=== PATIENT | male | born 1975 | race Caucasian/White ===

== ENCOUNTER 2018-09-17 17:14 | Inpatient (IN) | payer OTHER ==
[2018-09-17 18:13] VITALS: BMI 27.0
--- NOTE | 2018-09-17 19:08 | HP ---
CIWA Score - Admission Criteria [facility]ASAS Guidelines: Admission for Medically Managed Detox: Requires at least one of the followin. CIWA greater than 12 2. Seizures within the past 24 hours 3. Delirium tremens within the past 24 hours 4. Hallucinations within the past 24 hours 5. Acute intervention needed for co occurring medical disorder 6. Acute intervention needed for co occurring psychiatric disorder 7. Severe withdrawal that cannot be handled at a lower level of care (continued vomiting, continued diarrhea, abnormal vital signs) requiring intravenous medication and/or fluids 8. Admission ROS BHS - HPI Chief Complaint: I was at [facility] for my detox and psychiatric issues for 2 weeks. now here for rehab. Allergies/Adverse Reactions: Allergies Allergy/AdvReac Type Severity Reaction Status Date / Time No Known Allergies Allergy Verified 09/17/18 18:47 History of Present Illness: pt is a 43yr old male with a history of alcohol and cocaine dependence seeking rehab for treatment. Pt was at [facility] for treatment for both alcohol and psych issues. Exam Limitations: No Limitations - Ebola screening Have you traveled outside of the country in the last 21 days: No Have you had contact with anyone from an Ebola affected area: No Have you been sick,other than usual withdrawal symptoms: No Do you have a fever: No - Review of Systems Constitutional: No Symptoms Reported EENT: reports: No Symptoms Reported Respiratory: reports: No Symptoms reported Cardiac: reports: No Symptoms Reported GI: reports: No Symptoms Reported : reports: No Symptoms Reported Musculoskeletal: reports: Back Pain, Joint Pain Integumentary: reports: No Symptoms Reported Neuro: reports: No Symptoms reported Endocrine: reports: No Symptoms Reported Hematology: reports: No Symptoms Reported Psychiatric: reports: Judgement Intact, Mood/Affect Appropiate, Orientated x3, Agitated, Anxious Other Systems: Reviewed and Negative Patient History - Patient Medical History Hx Anemia: No Hx Asthma: No Hx Chronic Obstructive Pulmonary Disease (COPD): No Hx Cancer: No Hx Cardiac Disorders: No Hx Congestive Heart Failure: No Hx Hypertension: No Hx Hypercholesterolemia: No Hx Pacemaker: No HX Cerebrovascular Accident: No Hx Seizures: No Hx Dementia: No Hx Diabetes: No Hx Gastrointestinal Disorders: Yes (acid reflux ) Hx Liver Disease: No Hx Genitourinary Disorders: No Hx Sexually Transmitted Disorders: No Hx Renal Disease (ESRD): No Hx Thyroid Disease: No Hx Human Immunodeficiency Virus (HIV): No (negative ) Hx Hepatitis C: No (negative) Hx Depression: Yes Hx Suicide Attempt: Yes (tried to hurt self 2weeks ago. denies any S/H ideation today) Hx Bipolar Disorder: Yes Hx Schizophrenia: Yes - Patient Surgical History Past Surgical History: Yes Hx Abdominal Surgery: Yes (2x hernia repair ) Other Surgical History: skin graft to right arm 1976. - PPD History Previous Implant?: No Documented Results: Positive w/o proof PPD to be Administered?: No - Reproductive History Patient is a Female of Child Bearing Age (11 -55 yrs old): No - Smoking Cessation Smoking history: Current every day smoker Have you smoked in the past 12 months: Yes Aproximately how many cigarettes per day: 10 Hx Chewing Tobacco Use: No Initiated information on smoking cessation: Yes 'Breaking Loose' booklet given: 09/17/18 - Substance & Tx. History Hx Alcohol Use: Yes Hx Substance Use: No Substance Use Type: Alcohol, Cocaine Hx Substance Use Treatment: Yes (last detox 1yr ago cannot remember where.) - Substances Abused Alcohol Route: Oral Frequency: Daily Amount used: 2 six pack Age of first use: 17 Date of Last Use: 08/27/18 Cocaine Route: Inhalation Frequency: Daily Amount used: 1gram Age of first use: 17 Date of Last Use: 08/27/18 Family Disease History - Family Disease History Family Disease History: CA: Grandparent (etoh), Other: Grandparent Admission Physical Exam BHS - Vital Signs Vital Signs: Vital Signs - 24 hr 09/17/18 18:07 Temperature 97.8 F Pulse Rate 90 Respiratory 18 Rate Blood Pressure 123/77 - Physical General Appearance: Yes: Appropriately Dressed, Moderate Distress, Sweating, Anxious HEENTM: Yes: Hearing grossly Normal, Normal Voice Respiratory: Yes: Chest Non-Tender, Lungs Clear, Normal Breath Sounds Neck: Yes: No masses,lesions,Nodules Breast: Yes: Within Normal Limits Cardiology: Yes: Regular Rhythm, Regular Rate, S1, S2 Abdominal: Yes: Normal Bowel Sounds, Non Tender, Flat Genitourinary: Yes: Within Normal Limits Back: Yes: Normal Inspection Musculoskeletal: Yes: full range of Motion, Back pain Extremities: Yes: Normal Capillary Refill, Normal Inspection, Non-Tender Neurological: Yes: Fully Oriented, Alert, Normal Response Integumentary: Yes: Normal Color Lymphatic: Yes: Within Normal Limits - Diagnostic (1) Cocaine dependence Current Visit: Yes Status: Chronic Qualifiers: Substance use status: uncomplicated Qualified Code(s): F14.20 - Cocaine dependence, uncomplicated (2) Nicotine dependence Current Visit: Yes Status: Chronic Qualifiers: Nicotine product type: cigarettes Substance use status: uncomplicated Qualified Code(s): F17.210 - Nicotine dependence, cigarettes, uncomplicated (3) Acid reflux Current Visit: Yes Status: Chronic Qualifiers: Esophagitis presence: without esophagitis Qualified Code(s): K21.9 - Gastro -esophageal reflux disease without esophagitis (4) Alcohol dependence Current Visit: Yes Status: Chronic Qualifiers: Substance use status: in remission Qualified Code(s): F10.21 - Alcohol dependence, in remission Cleared for Admission BHS - Detox or Rehab [facility] Level of Care: Medically Managed Claeared for Rehab Admission: Yes [facility] Breath Alcohol Content Breath Alcohol Content: 0 Urine Drug Screen - Results Drug Screen Negative: No Urine Drug Screen Results: BZO-Benzodiazepines Inpatient Rehab Admission - Initial Determination Are CD services needed?: Yes Free of communicable disease: Yes Not in need of hospitalization: Yes - Rehab Admission Criteria Poor recovery environment: Yes Comorbidities: Yes Lacks judgement: Yes Patient is meeting Inpatient Rehab admission criteria:: Yes
[2018-09-17] MEDS ORDERED: ACETAMINOPHEN 325 MG TABLET (FP) PO PRN (19:15)
[2018-09-17] MEDS ORDERED: MAGNESIUM CITRATE 300 ML BOTTLE PO PRN (19:15)
[2018-09-17] MEDS ORDERED: P-EPHED 60MG/TRIPROLIDI 2.5MG TABLET PO PRN (19:15)
[2018-09-17] MEDS ORDERED: guaiFENesin/D-METHORPHAN HB 10 ML UNIT-DOSE CUPS PO PRN (19:15)
[2018-09-17] MEDS ORDERED: NICOTINE POLACRILEX 4 MG GUM BC PRN (19:15)
[2018-09-17] MEDS ORDERED: MAG HYDROX/AL HYDROX/SIMETH 30 ML UNIT-DOSE CUP PO PRN (19:15)
[2018-09-17] MEDS ORDERED: LOPERAMIDE HCL 2 MG CAPSULE PO PRN (19:15)
[2018-09-17] MEDS ORDERED: MENTHOL/PHENOL 1 EACH UD MM PRN (19:15)
[2018-09-17] MEDS ORDERED: MAGNESIUM HYDROX 2400MG/30ML ORAL SUSPENSION 30 ML CUP PO PRN (19:15)
[2018-09-17] MEDS ORDERED: IBUPROFEN 400 MG TABLET (FP) PO PRN (19:15)
[2018-09-17] MEDS ORDERED: MELATONIN 5 MG TABLETS PO PRN (22:00)
[2018-09-17] MEDS: hydrOXYzine PAMOATE 50 MG CAPSULE (FP) PO PRN (22:15)
[2018-09-17] MEDS: THIAMINE HCL 100 MG TABLET (FP) PO SCH (22:15)
[2018-09-17] MEDS: MIRTAZAPINE 30 MG TABLET (FP) PO SCH (22:15)
[2018-09-18] MEDS: PANTOPRAZOLE 40 MG TABLET (FP) PO SCH ×2 (06:38→10:58)
[2018-09-18] MEDS: PRENATAL VITAMINS W/ FOLIC ACID TABLET (FP) PO SCH (10:58)
[2018-09-18] MEDS: NICOTINE 21 MG/24 HOURS TOPICAL PATCH TD SCH (10:58)
[2018-09-18] MEDS: hydrOXYzine PAMOATE 50 MG CAPSULE (FP) PO PRN ×2 (10:59→21:45)
--- NOTE | 2018-09-18 11:37 | HP ---
Psychiatrist Admission - Data Date of interview: 09/18/18 Admission source: [facility] Identifying data: Patient is a 43 year old male, father of two, unemployed. domiciled, and is supported by public assistance. This is patient's first admission to rehab at [facility]. Patient admitted to for cocaine dependence. Medical History: Acid reflux, 2x hernia repair, skin graft to right arm 1976 Psychiatric History: Patient's first psychiatric contact was at 25 years of age to address h/o polysubstance abuse. He was diagnosed with Bipolar disorder and prescribed remeron and effexor. He discontinued treatment after 6 months and did not seek psychiatric treatment again until the age of 38. At the age of 38 he reported worsening depression and anxiety due to polysubstance abuse and therefore admitted himself to a detox/rehab program in [place]. After discharge he continued outpatient psychiatric treatment at the [facility] in [place], [place]. He was later diagnosed with schizoaffective disorder. Patient reports multiple psychatric hospitalizations, most recently at [facility] from -09/17/18 after a suicide attempt via overdose of zyprexa pills. Patient is also known to [facility]. He reports history of 5 suicide attempts via hanging self and overdose. In addition, he also reports h /o cutting self superfically. Patient's current psychotropic medications are abilify 10mg daily + Zoloft 200mg daily + Mirtzapine 30mg HS (discharge medications from [facility]). Current outpatient psychiatric care is provided at the [facility] in [place], [place]. Before admission to [facility] he was prescried zyprexa 15mg + Cymbalta 60mg + vistaril 50mg by his outpatient psychiatrist. He reports h/o paranoid ideation, mood unstability, and believing he can read another individuals mind. Patient currently denies thoughts or urgues to hurt self or others. At present, patient reports feeling anxious. He denies psychotic symptoms. Physical/Sexual Abuse/Trauma History: denies. Vital Signs: Vital Signs - 24 hr 09/17/18 09/18/18 09/18/18 18:07 00:30 03:30 Temperature 97.8 F Pulse Rate 90 Respiratory 18 Rate Blood Pressure 123/77 09/18/18 06:59 Temperature 97.9 F Pulse Rate 72 Respiratory 18 Rate Blood Pressure 125/84 Allergies/Adverse Reactions: Allergies Allergy/AdvReac Type Severity Reaction Status Date / Time No Known Allergies Allergy Verified 09/17/18 18:47 Date of last physical exam: 09/17/18 Concur with the findings of this exam: Yes - Substance Abuse/Tx History Hx Alcohol Use: Yes (2 six packs daily) Hx Substance Use: Yes (1 gram daily) Substance Use Type: Cocaine Hx Substance Use Treatment: Yes (Rehab in [place]. ) Mental Status Exam - Mental Status Exam Alert and Oriented to: Time, Place, Person Cognitive Function: Good Patient Appearance: Well Groomed Mood: Anxious, Euthymic Affect: Appropriate Patient Behavior: Appropriate, Cooperative Speech Pattern: Clear, Appropriate Voice Loudness: Normal Thought Process: Goal Oriented Thought Disorder: Not Present Hallucinations: Denies Suicidal Ideation: Denies Homicidal Ideation: Denies Insight/Judgement: Poor Sleep: Fair Appetite: Fair Muscle strength/Tone: Normal Gait/Station: Normal Psychiatric Findings - Problem List ([place] 1, 2,3) (1) Schizoaffective disorder Current Visit: Yes Status: Chronic (2) Alcohol dependence Current Visit: Yes Status: Chronic Qualifiers: Substance use status: in remission Qualified Code(s): F10.21 - Alcohol dependence, in remission (3) Cocaine dependence Current Visit: Yes Status: Chronic Qualifiers: Substance use status: uncomplicated Qualified Code(s): F14.20 - Cocaine dependence, uncomplicated (4) Nicotine dependence Current Visit: Yes Status: Chronic Qualifiers: Nicotine product type: cigarettes Substance use status: uncomplicated Qualified Code(s): F17.210 - Nicotine dependence, cigarettes, uncomplicated - Initial Treatment Plan Initial Treatment Plan: Psychoeducation provided. Rehab in progress. Medications verified through discharge documentions from [facility]. Will order Zoloft 200mg daily + Abilify 10mg daily. Will continue Remeron 30mg which was ordered in [facility] by [facility]. Benefits and side effects discussed. Verbal consent given.
--- NOTE | 2018-09-18 12:52 | EKG ---
Test Reason : Blood Pressure : / mmHG Vent. Rate : 078 BPM Atrial Rate : 078 BPM P-R Int : 174 ms QRS Dur : 098 ms QT Int : 362 ms P-R-T Axes : 071 061 061 degrees QTc Int : 412 ms NORMAL SINUS RHYTHM NORMAL ECG NO PREVIOUS ECGS AVAILABLE Confirmed by MECCA ETIENNE MD ([id number]) on 09/18/2018 12:51:35 PM Referred By: Confirmed By:MECCA ETIENNE MD
[2018-09-18] MEDS: SERTRALINE HCL 50 MG TABLET (FP) PO SCH (14:20)
[2018-09-18] MEDS: ARIPiprazole 10 MG TABLET PO SCH (14:20)
[2018-09-18 16:04] LABS: HEMATOCRIT 43.5 % (35.4-49); HEMOGLOBIN 15.4 GM/dL (11.7-16.9); MCH 32.9 pg (25.7-33.7); MCHC 35.3 g/dl (32.0-35.9); MEAN CELL VOLUME 93.2 fl (80-96); MEAN PLT VOLUME 7.8 fl (7.5-11.1); PLATELET COUNT 260 K/MM3 (134-434); RBC 4.67 M/mm3 (4.00-5.60); WHITE BLOOD COUNT 10.3 K/mm3 (4.0-10.0)
[2018-09-18 16:20] LABS: ALBUMIN 3.7 g/dl (3.4-5.0); ALK PHOS 82 U/L (45-117); ANION GAP 6 MMOL/L (8-16); BILIRUBIN,TOTAL 0.3 mg/dL (0.2-1); BLOOD UREA NITROGEN 10 mg/dL (7-18); CHLORIDE 103 mmol/L (98-107); CO2 31 mmol/L (21-32); CREATININE 0.8 mg/dL (0.55-1.3); GLUCOSE,RANDOM 84 mg/dL (74-106); SGOT/AST 30 U/L (15-37); SGPT/ALT 84 U/L (13-61); SODIUM 140 mmol/L (136-145); TOT PROT 6.9 g/dl (6.4-8.2)
[2018-09-18 19:10] LABS: URINE APPEARANCE CLEAR; URINE BILIRUBIN NEGATIVE (<2.0 mg/dL); URINE COLOR COLORLESS; URINE GLUCOSE (UA) NEGATIVE (NEGATIVE); URINE KETONE NEGATIVE (NEGATIVE); URINE LEUK ESTERASE NEGATIVE (NEGATIVE); URINE NITRITE NEGATIVE (NEGATIVE); URINE PROTEIN NEGATIVE (NEGATIVE); URINE UROBILINOGEN NEGATIVE mg/dL (0.2-1.0)
[2018-09-18] MEDS: THIAMINE HCL 100 MG TABLET (FP) PO SCH (21:44)
[2018-09-18] MEDS: MIRTAZAPINE 30 MG TABLET (FP) PO SCH (21:45)
[2018-09-19] MEDS: NICOTINE 21 MG/24 HOURS TOPICAL PATCH TD SCH (10:43)
[2018-09-19] MEDS: PRENATAL VITAMINS W/ FOLIC ACID TABLET (FP) PO SCH (10:43)
[2018-09-19] MEDS: PANTOPRAZOLE 40 MG TABLET (FP) PO SCH (10:44)
[2018-09-19] MEDS: ARIPiprazole 10 MG TABLET PO SCH (10:44)
[2018-09-19] MEDS: SERTRALINE HCL 50 MG TABLET (FP) PO SCH (10:46)
[2018-09-19] MEDS: hydrOXYzine PAMOATE 50 MG CAPSULE (FP) PO PRN ×3 (13:13→21:34)
[2018-09-19] MEDS: MIRTAZAPINE 30 MG TABLET (FP) PO SCH (21:34)
[2018-09-19] MEDS: THIAMINE HCL 100 MG TABLET (FP) PO SCH (21:34)
[2018-09-20] MEDS: hydrOXYzine PAMOATE 50 MG CAPSULE (FP) PO PRN ×3 (08:37→19:13)
[2018-09-20] MEDS: SERTRALINE HCL 50 MG TABLET (FP) PO SCH (10:26)
[2018-09-20] MEDS: PANTOPRAZOLE 40 MG TABLET (FP) PO SCH (10:27)
[2018-09-20] MEDS: ARIPiprazole 10 MG TABLET PO SCH (10:27)
[2018-09-20] MEDS: PRENATAL VITAMINS W/ FOLIC ACID TABLET (FP) PO SCH (10:27)
[2018-09-20] MEDS: NICOTINE 21 MG/24 HOURS TOPICAL PATCH TD SCH (10:27)
[2018-09-20] MEDS: THIAMINE HCL 100 MG TABLET (FP) PO SCH (21:44)
[2018-09-20] MEDS: MIRTAZAPINE 30 MG TABLET (FP) PO SCH (21:44)
[2018-09-21] MEDS: SERTRALINE HCL 50 MG TABLET (FP) PO SCH (08:59)
[2018-09-21] MEDS: ARIPiprazole 10 MG TABLET PO SCH (08:59)
[2018-09-21] MEDS: PANTOPRAZOLE 40 MG TABLET (FP) PO SCH (08:59)
[2018-09-21] MEDS: PRENATAL VITAMINS W/ FOLIC ACID TABLET (FP) PO SCH (08:59)
[2018-09-21] MEDS: hydrOXYzine PAMOATE 50 MG CAPSULE (FP) PO PRN ×4 (08:59→21:43)
[2018-09-21] MEDS: NICOTINE 21 MG/24 HOURS TOPICAL PATCH TD SCH (09:00)
--- NOTE | 2018-09-21 13:26 | PN ---
Psychiatric Progress Note Vital Signs: Vital Signs Period Temp Pulse Resp BP Sys/Do Pulse Ox Last 24 Hr 97.7 F 97 18-18 129/84 Date of Session: 09/21/18 Chief Complaint:: Discharge Note HPI: Patient addressing Alcohol and Cocaine Dependence comorbid with Nicotine Dependence and Schizoaffective Disorder ROS: GERD Current Medications: Active Medications Generic Name Dose Route Start Last Admin Trade Name Freq PRN Reason Stop Dose Admin Acetaminophen 650 mg 09/17/18 19:15 Tylenol - PO Q4H PRN FEVER Al Hydroxide/Mg Hydroxide 30 ml 09/17/18 19:15 Mylanta Oral Suspension - PO Q6H PRN DYSPEPSIA Aripiprazole 10 mg 09/18/18 13:00 09/21/18 08:59 Abilify PO 10 mg DAILY NICHOLAS Administration Eucalyptus/Menthol/Phenol/Sorbitol 1 each 09/17/18 19:15 Cepastat Lozenge - MM Q4H PRN SORE THROAT Guaifenesin 10 ml 09/17/18 19:15 Robitussin Dm - PO Q6H PRN COUGH Hydroxyzine Pamoate 50 mg 09/17/18 19:15 09/21/18 12:41 Vistaril - PO 50 mg Q4H PRN Administration AGITATION Ibuprofen 400 mg 09/17/18 19:15 Motrin - PO Q6H PRN Pain level 4-6 Loperamide HCl 4 mg 09/17/18 19:15 Imodium - PO Q6H PRN DIARRHEA Magnesium Citrate 300 ml 09/17/18 19:15 Citroma - PO Q48H PRN CONSTIPATION Magnesium Hydroxide 30 ml 09/17/18 19:15 Milk Of Magnesia - PO DAILY PRN CONSTIPATION Melatonin 5 mg 09/17/18 22:00 09/17/18 22:15 Melatonin PO 5 mg HS PRN Administration INSOMNIA Mirtazapine 30 mg 09/17/18 22:00 09/20/18 21:44 Remeron - PO 30 mg HS NICHOLAS Administration Nicotine 21 mg 09/18/18 10:00 09/21/18 09:00 Nicoderm Patch - TD 21 mg DAILY NICHOLAS Administration Nicotine Polacrilex 4 mg 09/17/18 19:15 Nicorette Gum - BC Q2H PRN NICOTINE REPLACEMENT RX Pantoprazole Sodium 40 mg 09/18/18 07:00 09/21/18 08:59 Protonix - PO 40 mg DAILY NICHOLAS Administration Multivit/Folic Acid/Iron 1 tab 09/18/18 10:00 09/21/18 08:59 Vitamins (Sjr) - PO 1 tab DAILY NICHOLAS Administration Pseudoephedrine/Triprolidine 1 combo 09/17/18 19:15 Actifed - PO TID PRN NASAL CONGESTION Sertraline HCl 200 mg 09/18/18 13:00 09/21/18 08:59 Zoloft - PO 200 mg DAILY NICHOLAS Administration Thiamine HCl 100 mg 09/17/18 22:00 09/20/18 21:44 Vitamin B1 - PO 100 mg HS NICHOLAS Administration Current Side Effect: No Lab tests ordered: Yes Lab tests reviewed: Yes Provider note:: Patient has completed this program on 09/22/18. He has partially met his treatment goals and will continue to address his issues in outpatient treatment at [facility] at [address] [place] [address]. Told board writer that from his participation in this program, he has learned better ways to address his mental illness and suicide prevention. He responded well to Zoloft 200 mg po daily, Abilify 10 mg po daily and Remeron 30 mg po HS. Scripts for 30 days supply of medications will be electronicaly transmitted to [facility] at [address] [place] [address]. He is stable for discharge on Total face to face time:: 35 Mental Status Exam - Mental Status Exam Alert and Oriented to: Time, Place, Person Cognitive Function: Fair Patient Appearance: Well Groomed Mood: Hopeful, Euthymic Affect: Appropriate Patient Behavior: Cooperative Speech Pattern: Clear Voice Loudness: Normal Thought Process: Intact, Goal Oriented Thought Disorder: Not Present Hallucinations: Denies Suicidal Ideation: Denies Homicidal Ideation: Denies Insight/Judgement: Fair Sleep: Fair Appetite: Fair Muscle strength/Tone: Normal Gait/Station: Normal Psychiatric Treatment Plan - Problem List (1) Alcohol dependence Current Visit: Yes Qualifiers: Substance use status: in remission Qualified Code(s): F10.21 - Alcohol dependence, in remission (2) Cocaine dependence Current Visit: Yes Qualifiers: Substance use status: uncomplicated Qualified Code(s): F14.20 - Cocaine dependence, uncomplicated (3) Nicotine dependence Current Visit: Yes Qualifiers: Nicotine product type: cigarettes Substance use status: uncomplicated Qualified Code(s): F17.210 - Nicotine dependence, cigarettes, uncomplicated (4) Schizoaffective disorder Current Visit: Yes (5) Acid reflux Current Visit: Yes Qualifiers: Esophagitis presence: without esophagitis Qualified Code(s): K21.9 - Gastro -esophageal reflux disease without esophagitis Initial treatment plan: Patient will be discharged tomorrow and referred to [facility] in [place], [place] for outpatient treatment
[2018-09-21] MEDS: THIAMINE HCL 100 MG TABLET (FP) PO SCH (21:42)
[2018-09-21] MEDS: MIRTAZAPINE 30 MG TABLET (FP) PO SCH (21:42)
[2018-09-22 06:53] VITALS: BP 113/89; PULSE 87; TEMP 98.2
[2018-09-22] MEDS: hydrOXYzine PAMOATE 50 MG CAPSULE (FP) PO PRN (08:19)
[2018-09-22] MEDS: ARIPiprazole 10 MG TABLET PO SCH (10:06)
[2018-09-22] MEDS: SERTRALINE HCL 50 MG TABLET (FP) PO SCH (10:06)
[2018-09-22] MEDS: NICOTINE 21 MG/24 HOURS TOPICAL PATCH TD SCH (10:06)
[2018-09-22] MEDS: PANTOPRAZOLE 40 MG TABLET (FP) PO SCH (10:06)
[2018-09-22] MEDS: PRENATAL VITAMINS W/ FOLIC ACID TABLET (FP) PO SCH (10:06)
--- NOTE | 2018-09-22 12:29 | PN ---
[facility] Progress Note Note: PT COMPLETED REHAB. ALERT O X 3. PT REPORTS HE HAS PRIMARY CARE AT [facility] WITH DR. SUSHIL KAYE FOR MEDICAL MANAGEMENT. Vital Signs 09/22/18 06:52 Temperature 98.2 F Pulse Rate 87 Respiratory 18 Rate Blood Pressure 113/89 Laboratory Tests 09/17/18 09/18/18 09/18/18 23:00 10:16 10:16 WBC 10.3 H RBC 4.67 Hgb 15.4 Hct 43.5 MCV 93.2 MCH 32.9 MCHC 35.3 RDW 14.0 Plt Count 260 MPV 7.8 Sodium 140 Potassium 4.0 Chloride 103 Carbon Dioxide 31 Anion Gap 6 L BUN 10 Creatinine 0.8 Creat Clearance w eGFR > 60 Random Glucose 84 Calcium 9.0 Total Bilirubin 0.3 AST 30 ALT 84 H Alkaline Phosphatase 82 Total Protein 6.9 Albumin 3.7 Urine Color Colorless Urine Appearance Clear Urine pH 7.0 Ur Specific [place] 1.003 L Urine Protein Negative Urine Glucose (UA) Negative Urine Ketones Negative Urine Blood Negative Urine Nitrite Negative Urine Bilirubin Negative Urine Urobilinogen Negative Ur Leukocyte Esterase Negative RPR Titer 09/18/18 10:16 WBC RBC Hgb Hct MCV MCH MCHC RDW Plt Count MPV Sodium Potassium Chloride Carbon Dioxide Anion Gap BUN Creatinine Creat Clearance w eGFR Random Glucose Calcium Total Bilirubin AST ALT Alkaline Phosphatase Total Protein Albumin Urine Color Urine Appearance Urine pH Ur Specific [place] Urine Protein Urine Glucose (UA) Urine Ketones Urine Blood Urine Nitrite Urine Bilirubin Urine Urobilinogen Ur Leukocyte Esterase RPR Titer Nonreactive NAD PLAN:D/C PT TODAY FOLLOW UP WITH PCP DR. SUSHIL KAYE FOR MEDICAL MANAGEMENT 1-2 WEEKS AFTER DISCHARGE.
== END 2018-09-22 10:25 | disposition home or self-care (01) | DRG 772 ==
LOC: YASAS 17:14 → Y5N 18:55
PROVIDERS: ADMIT Psychiatry & Neurology Psychiatry; ATTEND Psychiatry & Neurology Psychiatry
PROC: HZ42ZZZ Group Counseling for Substance Abuse Treatment, Cognitive-Behavioral (ICD-10-PCS; principal; 2018-09-22)
DX: F10.20 Alcohol dependence, uncomplicated (principal); F14.20 Cocaine dependence, uncomplicated; F17.210 Nicotine dependence, cigarettes, uncomplicated; F25.9 Schizoaffective disorder, unspecified; K21.9 Gastro-esophageal reflux disease without esophagitis; Z59.0 Homelessness
CPT/HCPCS: 36415; 71046-TC-FY; 80053; 81003; 85027; 86593; 93005; 93010